=== PATIENT | male | born 1965 | race Caucasian/White ===

== ENCOUNTER 2025-08-09 13:34 | Emergency (ER) | payer BC, SELFPAY ==
[2025-08-09 13:34] VITALS: BMI 26.1
[2025-08-09 13:35] VITALS: BP 212/115
--- NOTE | 2025-08-09 15:25 | ED.GENMED ---
History of Present Illness
General
Chief Complaint: Alcohol Problem
Source: patient and family
Time Seen by Provider: 08/09/25 15:07
History of Present Illness
History of Present Illness:
60-year-old male presenting to the emergency department for evaluation after friends convinced him to come to the hospital with concerns for alcohol abuse. Patient drinks at least 2-3 beers daily in addition to 2-3 vodka drinks, this has been
gradually worsening over the last few years, yesterday family and friends had an intervention with the patient and they ultimately decided would be best for the patient to come to the hospital to seek further care and treatment. Patient is amenable
to inpatient treatment. He notes yesterday experiencing multiple episodes of nausea and vomiting and today has been feeling shaky. Last drink was at sometime last night. States today also feeling somewhat anxious.
Past History
Past History
ED Past Medical History: None
ED Past Surgical History: None
Social History
Tobacco: Non-smoker
Alcohol: Chronic alcoholic
Drug: None
Personal: Single
Living: with family
Employment: Employed
Review of Systems
Review of Systems
All Other Systems: ROS reviewed and negative except as documented in HPI and ROS
Phy Exam
Physical Exam
Physical Exam:
GENERAL: Alert , in no apparent distress
VITAL SIGNS: HTN noted
HEAD: Normocephalic atraumatic
EYE: clear conjunctiva, pupuls 4mm b/l
NECK: Supple
ENT: o/p clr, mmm.
CARDIAC: Regular rate and rhythm .
LUNGS: Clear breath sounds bilaterally, no acute respiratory distress, no wheezes/rales/rhonchi
ABDOMEN: Soft, without focal tenderness, no r/g, no cvat
NEUROLOGICAL: Alert and oriented, no focal neuro deficits, tremors with arms extended
SKIN: Warm and dry, skin intact.
MUSCULOSKELETAL: No edema, well perfused.
PSYCH: Normal and appropriate interaction.
Scores
Heart Failure Risk
Heart Failure Risk Score: Not Applicable
Heart Score for Chest Pain Patients
STEMI patient?: Not applicable
Withdrawal Assessment of Alcohol
Withdrawal Assessment Completed?: Yes
Nausea and Vomiting: Intermittent nausea with dry heaves
Tactile Disturbances: None
Tremor: Moderate, with patient's arms extended
Auditory Disturbances: Not present
Paroxysmal Sweats: No sweat visible
Visual Disturbances: Not present
Anxiety: Mild anxiety
Headache, Fullness in Head: Very mild
Agitation: Normal activity
Orientation and clouding of sensorium: Oriented and can do serial additions
Total CIWA Score: 10
Alcohol Withdrawal Medication Recommendation: Equal to MSAS Score 5-7. Lorazepam 1mg IV or PO NOW & re-assess q2hrs
Course
Orders/Labs/Results
Orders:
Orders
08/09/25 15:19
Electrocardiogram (*1) Urgent
Reason for Study: QTc Monitoring
EKG- Treatment ONCE
Ondansetron Injectable [Zofran] 4 mg IV NOW STA
diazePAM [Valium Injection] 5 mg IV NOW STA
08/09/25 15:40
Alcohol Urgent
Complete Blood Count/With Diff Urgent
Comprehensive Metabolic Panel Urgent
Magnesium Urgent
Urine Drug Abuse Screen Urgent
Date Specimen was Collected: 08/09/25
Time Specimen was Collected: 15:32
08/09/25 19:27
Diazepam [Valium] 5 mg PO NOW STA
Abnormal Lab Results
08/09/25
15:40
MCV 96.1 H fL
(80.0-94.0)
MCH 31.6 H pg
(27.0-31.0)
MCHC 32.9 L g/dL
(33.0-37.0)
RDW 11.3 L %
(11.5-14.5)
Plt Count 102 L 10^3/uL
(130-400)
Absolute Lymphs (auto) 0.9 L 10^3/uL
(1.2-3.4)
Absolute Monos (auto) 0.7 H 10^3/uL
(0.1-0.6)
Lymphocytes % 17.5 L %
(20.5-51.1)
Monocytes % 13.0 H %
(1.7-9.3)
Sodium 134 L mmol/L
(135-145)
Chloride 97 L mmol/L
(98-107)
Glucose 107 H mg/dl
(70-99)
Total Bilirubin 3.9 H mg/dl
(0.2-1.3)
AST 159 H U/L
(17-59)
ALT 72 H U/L
(0-50)
Total Protein 9.1 H g/dl
(6.3-8.2)
08/09/25 15:40
08/09/25 15:40
Vital Signs
Initial and Last Documented VS:
Initial Vital Signs
Temp Pulse Resp BP Pulse Ox
99.0 F 81 16 212/115 97
08/09/25 13:35 08/09/25 13:35 08/09/25 13:35 08/09/25 13:35 08/09/25 13:35
Last Documented Vital Signs
Temp Pulse Resp BP Pulse Ox
99.0 F 67 13 167/94 96
08/09/25 13:35 08/09/25 19:00 08/09/25 19:00 08/09/25 18:30 08/09/25 18:45
MDM/Problems Addressed
Differential Diagnosis Includes:
ETOH/substance abuse
Acute Withdrawal
Electrolyte Imbalance
Cardiac Arrhythmia
MDM/Problems Addressed:
60-year-old male presenting to the emergency department for evaluation of suspected alcohol withdrawal, longstanding history of alcohol abuse. M neymar score 5-7. Will treat with IV Zofran and Valium. Patient may need admission for monitoring of
alcohol withdrawal until he can be safely cleared to go to inpatient rehab if he continues to choose to do so. At this time patient does report being amenable to going inpatient for rehab treatment.
Chronic conditions affecting care: Psychiatric illness
Acute Exacerbation and/or Progression of Chronic Illness: Psychiatric illness
*Pulse Oximetry
SaO2: 97
Oxygen Mode of Delivery: Room air
Patient hypoxic: no
*Critical Care Note
Total Time (30-74mins, 75-104mins- exclusive of procedures): Not Applicable
Patient Management
Social determinants of health affecting care: Living situation, Substance abuse and Strong social support
Escalation/DeEscalation of care consider admission/obs:
On multiple reevaluations patient reports continuing to feel well. His blood pressure is significantly improved. Patient does note that he follows up with his primary care doctor and his blood pressure has been elevated over the last few years but
he is hesitant to start any antihypertensive medication so I do see that this is baseline hypertension for the patient. Patient now resistant to any inpatient treatment and is wishing to be discharged home. He is amenable to outpatient based care
and will follow-up with [facility] [place] for this. I did send a short-term prescription for Valium to help with any withdrawal symptoms. Patient and family/friends aware of return precautions to the emergency
ED Attending Note
-
Portions of this chart may have been created with voice recognition software.� Occasional wrong word or��sound alike� substitutions may have occurred due to the inherent limitations of voice recognition software.
Discharge Plan
Departure
Patient Disposition: Home (Routine Discharge)
Date of Disposition: 08/09/25
Time of Disposition: 19:12
Patient with high blood pressure during this ER visit?: Yes
Discharge Problem:
Alcohol abuse
Instructions: Alcohol Use Disorder (DC)
Prescriptions:
New
diazepam [Valium] 5 mg tablet
5 mg PO BID PRN (Reason: alcohol withdrawal) Qty: 10 0RF
No Action
No Current Medications
hydrocodone-acetaminophen [Vicodin] 1 EACH tablet
1 tab PO Q6HPRN PRN (Reason: pain) Qty: 10 0RF
diazepam 5 MG tablet
5 mg PO Q6HPRN PRN (Reason: muscle spasm) Qty: 10 0RF
Referrals:
Cori Dotson CRNP [Family Provider, Family Practice]
Interventions
Interventions:
*Risk Screen - Suicide Last Done: 08/09/25 13:35
*General Assessment Last Done: 08/09/25 13:35
*Neglect/Abuse Screening Last Done: 08/09/25 13:35
*ED- Fall Risk Assessment Last Done: 08/09/25 16:03
*ED COVID-19 Vaccine History Last Done: 08/09/25 19:54
*ED Influenza Vaccine History Last Done: 08/09/25 19:54
*Nursing Disposition Last Done: 08/09/25 19:54
ED- Neurological Assessment Last Done: 08/09/25 16:03
ED-Psychological Assessment Last Done: 08/09/25 16:03
Discharge Date and Time
Discharge Date/Time: 08/09/25 19:55
Print Language: MAORI
[2025-08-09] MEDS: VALIUM INJECTION 5 MG IV (15:36)
[2025-08-09] MEDS: ZOFRAN 4 MG IV (15:36)
[2025-08-09 16:05] LABS: Hematocrit 47.1 % (39.0-52.0); Hemoglobin 15.5 g/dL (13.0-18.0); Mean Corp Hgb Conc. 32.9 g/dL (33.0-37.0); Mean Corpuscular Volume 96.1 fL (80.0-94.0); Nucleated Red Blood Cells % 0 % (-); Platelet Count 102 10^3/uL (130-400); Red Cell Dist. Width 11.3 % (11.5-14.5)
[2025-08-09 16:30] VITALS: BP 166/100
[2025-08-09 16:37] LABS: ALT (SGPT) 72 U/L (0-50); AST (SGOT) 159 U/L (17-59); Albumin 4.5 g/dl (3.5-5.0); Alkaline Phosphatase 108 U/L (38-126); Blood Urea Nitrogen 10 mg/dl (9-20); Calcium 9.0 mg/dl (8.4-10.2); Carbon Dioxide 27 mmol/L (22-30); Chloride 97 mmol/L (98-107); Estimated Creatinine Clearance 120 ml/min; Glucose 107 mg/dl (70-99); Magnesium 1.9 mg/dl (1.6-2.3); Potassium 4.0 mmol/L (3.5-5.1); Sodium 134 mmol/L (135-145); Total Protein 9.1 g/dl (6.3-8.2); eGFR > 60.00
[2025-08-09 17:00] VITALS: BP 181/94
[2025-08-09 17:30] VITALS: BP 182/95
[2025-08-09 18:00] VITALS: BP 165/94
[2025-08-09 18:30] VITALS: BP 167/94
[2025-08-09] MEDS: VALIUM 5 MG PO (19:33)
== END 2025-08-09 19:55 | disposition home or self-care (01) ==
LOC: EMR 13:34
PROVIDERS: Physician Assistant Medical; EMERGENCY PHYSICIAN Emergency Medicine; FAMILY PHYSICIAN Nurse Practitioner Family
DX: F10.10 Alcohol abuse, uncomplicated (principal); R11.2 Nausea with vomiting, unspecified; R25.1 Tremor, unspecified; I10 Essential (primary) hypertension
CPT/HCPCS: 96374; 96375; 99284; 80053; 80306; 82077; 83735; 85025; 93005